=== PATIENT | female | born 1960 | race Hispanic/Latino ===

== ENCOUNTER 2016-10-21 09:33 | Outpatient (CLI) | payer BC ==
[2016-10-21 10:09] LABS: Hematocrit 40.9 % (30.3-42.9); Hemoglobin 13.6 gm/dl (10.1-14.3); Mean Corpuscular HGB Conc 33 % (30-34); Mean Corpuscular Hemoglobin 28 pg (28-32); Mean Corpuscular Volume 86 fl (79-97); Platelet Count 269 K/mm3 (140-440); Red Blood Count 4.78 M/mm3 (3.65-5.03); Red Cell Distribution Width 13.5 % (13.2-15.2); White Blood Count 5.9 K/mm3 (4.5-11.0)
[2016-10-21 10:30] LABS: Alanine Aminotransferase 31 units/L (7-56); Albumin 4.2 g/dL (3.9-5); Albumin/Globulin Ratio 1.4 %; Alkaline Phosphatase 65 units/L (35-129); Anion Gap 18 mmol/L; BUN/Creatinine Ratio 18.75; Bilirubin,Total 0.4 mg/dL (0.1-1.2); Blood Urea Nitrogen 15 mg/dL (7-17); Calcium 9.2 mg/dL (8.4-10.2); Carbon Dioxide 26 mmol/L (22-30); Chloride 101.3 mmol/L (98-107); Cholesterol 178 mg/dL (50-199); Creatine Kinase 160 units/L (30-135); Glucose 104 mg/dL (65-100); HDL Cholesterol 42 mg/dL (40-59); Iron 63 ug/dL (37-170); LDL Cholesterol,Direct 120 mg/dL (50-130); Magnesium 2.3 mg/dL (1.7-2.3); Potassium 4.1 mmol/L (3.6-5.0); Sodium 141 mmol/L (137-145); Total Protein 7.3 g/dL (6.3-8.2); Triglycerides 84 mg/dL (2-149); Uric Acid 7.2 mg/dL (3.5-7.6)
[2016-10-24 06:57] LABS: Vitamin D, 25-OH, Total 30 ng/mL (30-100)
[2016-10-29 07:51] LABS: Vitamin D, 25-OH, D2 SEE SCANNED RESULTS
== END 2016-10-21 09:34 | disposition home or self-care (01) ==
LOC: LAB 09:33
DX: E11.65 Type 2 diabetes mellitus with hyperglycemia (principal); I10 Essential (primary) hypertension; D64.9 Anemia, unspecified; E03.9 Hypothyroidism, unspecified
CPT/HCPCS: 36415; 80053; 80061; 82306; 82550; 82607; 82747; 83036; 83540; 83735; 84439; 84443; 84550; 85027

== ENCOUNTER 2016-11-18 10:54 | Outpatient (CLI) | payer BC ==
--- NOTE | 2016-11-18 11:23 | XRay Report ---
ROUTINE CHEST, TWO VIEWS: HISTORY: Cough. The trachea, heart, mediastinal contour, lung horton and bony thorax are unremarkable. IMPRESSION: Unremarkable chest x-ray. No evidence for pneumonia.
== END 2016-11-18 10:55 | disposition home or self-care (01) ==
LOC: XRAY 10:54
PROVIDERS: ATTEND Internal Medicine
DX: R05 Cough (principal)
CPT/HCPCS: 71020

== ENCOUNTER 2019-06-12 09:37 | Outpatient (CLI) | payer BC ==
[2019-06-12 10:31] LABS: Basophils # (Auto) 0.1 K/mm3 (0.0-0.1); Basophils % (Auto) 0.8 % (0.0-1.8); Eosinophils # (Auto) 0.2 K/mm3 (0.0-0.4); Eosinophils % (Auto) 3.1 % (0.0-4.3); Hematocrit 38.8 % (30.3-42.9); Hemoglobin 13.2 gm/dl (10.1-14.3); Lymphocytes # (Auto) 1.8 K/mm3 (1.2-5.4); Lymphocytes % (Auto) 23.9 % (13.4-35.0); Mean Corpuscular HGB Conc 34 % (30-34); Mean Corpuscular Volume 88 fl (79-97); Monocytes # (Auto) 0.5 K/mm3 (0.0-0.8); Monocytes % (Auto) 5.9 % (0.0-7.3); Platelet Count 257 K/mm3 (140-440); Red Blood Count 4.42 M/mm3 (3.65-5.03); Red Cell Distribution Width 13.5 % (13.2-15.2)
[2019-06-12 11:28] LABS: Alanine Aminotransferase 42 units/L (7-56); Albumin 4.5 g/dL (3.9-5); BUN/Creatinine Ratio 18; Blood Urea Nitrogen 16 mg/dL (7-17); Chol/HDL Ratio 4.54 %; HDL Cholesterol 35 mg/dL (40-59); Hemolysis Index 10; LDL Cholesterol,Direct 108 mg/dL (50-130)
[2019-06-14 09:48] LABS: Vitamin D, 25-OH, D2 <4 ng/mL
== END 2019-06-12 09:38 | disposition home or self-care (01) ==
LOC: LAB 09:37
PROVIDERS: ATTEND Internal Medicine
DX: Z00.00 Encounter for general adult medical examination without abnormal findings (principal); Z13.21 Encounter for screening for nutritional disorder; E55.9 Vitamin D deficiency, unspecified; Z13.1 Encounter for screening for diabetes mellitus; Z13.220 Encounter for screening for lipoid disorders
CPT/HCPCS: 36415; 80053; 80061; 82306; 82607; 83036; 84443; 85025

== ENCOUNTER 2019-06-26 11:45 | Outpatient (CLI) | payer BC ==
[2019-06-26 13:09] LABS: Bilirubin,Urine NEG (Negative); Blood,Urine SM (Negative); Color,Urine Yellow (Yellow); Mucus,Urine FEW /HPF; Protein,Urine <15 mg/dL mg/dL (Negative); Urobilinogen,Urine < 2.0 mg/dL (<2.0)
== END 2019-06-26 11:46 | disposition home or self-care (01) ==
LOC: LAB 11:45
PROVIDERS: ATTEND Internal Medicine
DX: N39.0 Urinary tract infection, site not specified (principal); I10 Essential (primary) hypertension
CPT/HCPCS: 81001; 87086

== ENCOUNTER 2019-07-03 11:27 | Outpatient (CLI) | payer BC ==
--- NOTE | 2019-07-03 14:08 | Mammography Report ---
DIGITAL SCREENING MAMMOGRAM WITH CAD, 07/03/2019 INDICATION: Routine screening mammography. TECHNIQUE: Digital bilateral 2D mammography was obtained in the craniocaudal and mediolateral obliq ue projections. This examination was interpreted with the benefit of Computer-Aided Detection analysi s. COMPARISON: 07/14/2013 FINDINGS: Breast Density: The breasts are almost entirely fatty. There is no evidence of dominant mass, suspicious calcifications or architectural distortion in eithe r breast. IMPRESSION: No mammographic evidence of malignancy. Follow up recommendation: Routine yearly BI-RADS Category 1: Negative. A "normal" or negative report should not discourage follow up or biopsy of a clinically significant f inding. A written summary of these findings will be mailed to the patient. The patient will be entered into a mammography reporting system which will generate a reminder letter for the patient's next appointmen t at the appropriate interval. The [employer] recommends yearly mammograms starting at age 40 and continuing as l gurvinder as a woman is in good health. Breast MRI is recommended for women with an approximate 20-25% or greater lifetime risk of breast cancer, including women with a strong family history of breast or ova clyde cancer or who have been treated for Hodgkin's disease. Signer Name: Chay Medel MD Signed: 07/03/2019 2:04 PM Workstation Name: [id number]
== END 2019-07-03 11:28 | disposition home or self-care (01) ==
LOC: MAMMO 11:27
PROVIDERS: ATTEND Internal Medicine
DX: Z12.31 Encounter for screening mammogram for malignant neoplasm of breast (principal)
CPT/HCPCS: 77067

== ENCOUNTER 2019-10-17 06:49 | Day surgery (SDC) | payer BC ==
[2019-10-17] MEDS ORDERED: WATER FOR IRRIG STERILE 250 ML BOTTLE IR ONE (07:34)
[2019-10-17] MEDS ORDERED: WATER FOR IRRIG STERILE 1,000 ML BOTTLE ONE (07:34)
[2019-10-17] MEDS ORDERED: propofoL 200 MG/20 ML VIAL IV ONE ×2 (07:38)
[2019-10-17] MEDS ORDERED: SODIUM CHLORIDE 0.9% 1000 ML 1,000 ML IV SCH (08:00)
--- NOTE | 2019-10-17 08:14 | Anesthesia Consultation ---
Anesthesia Consult and Med Hx Date of service: 10/17/19 - Airway Anesthetic Teeth Evaluation: Caps, Bridges ROM Head & Neck: Adequate Mental/Hyoid Distance: Inadequate Mallampati Class: Class II Intubation Access Assessment: Probably Good - Pulmonary Exam CTA: Yes - Cardiac Exam Cardiac Exam: RRR - Pre-Operative Health Status ASA Pre-Surgery Classification: ASA2 Proposed Anesthetic Plan: MAC - Pulmonary Hx Smoking: No Hx Asthma: No Hx Respiratory Symptoms: No SOB: No Hx Sleep Apnea: No (Snores) - Cardiovascular System Hx Hypertension: Yes Hx Heart Attack/AMI: No - Central Nervous System Hx Neuromuscular Disorder: No Hx Seizures: No Hx Psychiatric Problems: No - Gastrointestinal Hx Gastroesophageal Reflux Disease: No - Endocrine Hx Renal Disease: No Hx Cirrhosis: No Hx Thyroid Disease: No - Hematic Hx Anemia: No - Other Systems Hx Alcohol Use: No Hx Substance Use: No Hx Cancer: No Hx Obesity: Yes (BMI 39.5kg) - Additional Comments Anesthesia Medical History Comments: Patient denied previous anesthesia complications.
--- NOTE | 2019-10-17 08:18 | Anesthesia Day of Surgery ---
Anesthesia Day of Surgery - Day of Surgery Patient Examined: Yes Patient H&P Reviewed: Yes Patient is NPO: Yes
[2019-10-17] MEDS ORDERED: LIDOCAINE MPF (2%) 20 MG/1 ML VIAL 5 ML ONE (09:00)
--- NOTE | 2019-10-17 09:51 | Short Stay Summary ---
Short Stay Documentation Date of service: 10/17/19 Narrative H&P: The patient presents for high risk screening colonoscopy. There is a family history of a first-degree relative with colon polyps (mother). Her last study was 10 years ago. - History Past Medical History: hypertension Past Surgical History: Other (tubal ligation) Social history: no significant social history, lives with family - Allergies and Medications Current Medications: Allergies No Known Allergies Allergy (Verified 10/16/19 14:47) Home Medications Medication Instructions Recorded Confirmed Last Taken Type Advil Cold & Sinus Caplet 1 tab PO PRN PRN 10/16/19 10/16/19 Unknown History Effexor 37.5mg tab 1 tab PO DAILY 10/16/19 10/17/19 10/16/19 History Hydrochlorothiazide 12.5 mg PO DAILY 10/16/19 10/17/19 10/16/19 History Prilosec 20 mg PO DAILY 10/16/19 10/16/19 Unknown History Vitamin D3 1,000 mg PO DAILY 10/16/19 10/17/19 10/10/19 History Zyrtec 10mg tab 1 tab PO DAILY 10/16/19 10/17/19 10/16/19 History Active Medications Sodium Chloride (Nacl 0.9% 1000 Ml) 1,000 mls @ 50 mls/hr IV DIRECT LORENE Last Admin: 10/17/19 07:58 Dose: 50 mls/hr Documented by: - Physical exam General appearance: no acute distress, well-nourished, obese Integumentary: no rash, no growths, no abnormal pigmentation HEENT: Atraumatic, PERRLA, EOMI, Mucous membr. moist/pink Lungs: Clear to auscultation, Normal air movement Breasts: deferred Heart: Regular rate, Normal S1, Normal S2, No murmurs Gastrointestinal: normoactive bowel sounds, no absent bowel sounds, no tenderness, no distended, no masses, no guarding, no organomegaly, obese Female Genitourinary: deferred Rectal Exam: normal exam-external/orifice, no mass Extremities: no ischemia, pulses intact, pulses symmetrical, No edema, normal temperature, normal color, Full ROM Neurological: Normal gait, Normal speech, Strength at 5/5 X4 ext, Normal tone, Sensation intact, Cranial nerves 3-12 NL - Brief post op/procedure progress note Date of procedure: 10/17/19 Findings: See dictation Estimated blood loss: none Pathology: none Condition: stable - Disposition Condition at discharge: Good Disposition: DC-01 TO HOME OR SELFCARE - Discharge Diagnoses (1) Family history of colonic polyps Status: Acute Short Stay Discharge Plan Activity: other (no driving or 24 hours) Weight Bearing Status: Full Weight Bearing Diet: regular Follow up with: FRANCOIS COUCH MD [Primary Care Provider] - 7 Days
--- NOTE | 2019-10-17 09:53 | Operative Report ---
Operative Report Operative Report: Date of procedure: 10/17/2019 Preprocedure diagnosis: Colon cancer screening, high risk. Family history of c olon polyps in a first-degree relative, mother. Post procedure diagnosis: Moderate diverticulosis of the left colon. Procedure: Colonoscopy to the cecum Endoscopist: Dr. Johnston Anesthesia: Monitored anesthesia care per anesthesia department Estimated blood loss: 0 Medications: Monitored anesthesia care. See separate report by anesthesia for details. After careful discussion of the nature and purpose of the procedure as well as details of the technique risks benefits and alternatives the patient gave consent. Please see recent history and physical from the office. The patient was placed in the left lateral decubitus position and medicated per anesthesia. A rectal exam was performed sphincter tone was normal there were no masses palpable. The Quitt.chn 570 scope was passed transanally and advanced under continuous direct vision without difficulty to the cecum. The colon was well prepared. The cecum was normal. The ascending colon was normal and on forward and retroflexed views. The transverse colon was normal. There were scattered diverticula throughout the descending and sigmoid colon. The rectum was normal on forward and retroflexed views. The procedure was well-tolerated overall and the patient was observed in recovery. Conclusions: Diverticulosis of the left colon. Plan: Repeat colonoscopy in 5 years in light of family history of a first-degree relative with colon polyps. Signed electronically: Mani Johnston M.D.
[2019-10-17 10:51] VITALS: BP 122/75
--- NOTE | 2019-10-17 10:51 | Post Anesthesia Evaluation ---
- Post Anesthesia Evaluation Patient Participated: Yes Airway Patent: Yes Stable Respiratory Function: Yes Nausea/Vomiting: No Temp > 96.8F: Yes Pain Manageable: Yes Adequeate Hydration: Yes Anesthesia Complications: No Block Receding Appropriately: Not Applicable Patient on Ventilator: No
== END 2019-10-17 06:50 | disposition home or self-care (01) ==
LOC: GIO 06:49
PROVIDERS: ATTEND Internal Medicine Gastroenterology
DX: Z12.11 Encounter for screening for malignant neoplasm of colon (principal); K57.30 Diverticulosis of large intestine without perforation or abscess without bleeding; I10 Essential (primary) hypertension; E66.9 Obesity, unspecified; K21.9 Gastro-esophageal reflux disease without esophagitis; Z80.0 Family history of malignant neoplasm of digestive organs; Z98.51 Tubal ligation status; Z98.890 Other specified postprocedural states; Z79.899 Other long term (current) drug therapy; Z83.71 Family history of colonic polyps; Z68.39 Body mass index [BMI] 39.0-39.9, adult
CPT/HCPCS: 45378; J2704; J7030

== ENCOUNTER 2020-06-14 11:24 | Outpatient (CLI) | payer BC ==
[2020-06-14 11:48] LABS: Basophils # (Auto) 0.1 K/mm3 (0.0-0.1); Eosinophils # (Auto) 0.2 K/mm3 (0.0-0.4); Eosinophils % (Auto) 3.3 % (0.0-4.3); Lymphocytes # (Auto) 2.2 K/mm3 (1.2-5.4); Mean Corpuscular HGB Conc 37 % (30-34); Mean Corpuscular Volume 85 fl (79-97); Monocytes # (Auto) 0.4 K/mm3 (0.0-0.8); Monocytes % (Auto) 5.5 % (0.0-7.3); Platelet Count 288 K/mm3 (140-440); Red Cell Distribution Width 13.2 % (13.2-15.2)
[2020-06-14 11:49] LABS: Hematocrit 36.5 % (30.3-42.9); Hemoglobin 13.4 gm/dl (10.1-14.3)
[2020-06-14 12:00] LABS: Bacteria,Urine 1+ /HPF (Negative); Bilirubin,Urine NEG (Negative); Blood,Urine SM (Negative); Color,Urine Yellow (Yellow); Mucus,Urine FEW /HPF; Protein,Urine <15 mg/dL mg/dL (Negative); Urobilinogen,Urine < 2.0 mg/dL (<2.0)
[2020-06-14 12:27] LABS: Chol/HDL Ratio 4.05 %; HDL Cholesterol 36 mg/dL (40-59); LDL Cholesterol,Direct 97 mg/dL (50-130)
[2020-06-14 12:50] LABS: Alanine Aminotransferase 38 units/L (7-56); Albumin 4.2 g/dL (3.9-5); BUN/Creatinine Ratio 14; Blood Urea Nitrogen 11 mg/dL (7-17); Calcium 9.2 mg/dL (8.4-10.2); Hemolysis Index 4
[2020-06-18 11:36] LABS: Vitamin D, 25-OH, D2 <4 ng/mL
== END 2020-06-14 11:25 | disposition home or self-care (01) ==
LOC: LAB 11:24
PROVIDERS: ATTEND Internal Medicine
DX: Z00.00 Encounter for general adult medical examination without abnormal findings (principal); N39.0 Urinary tract infection, site not specified; E55.9 Vitamin D deficiency, unspecified; E66.09 Other obesity due to excess calories; Z13.29 Encounter for screening for other suspected endocrine disorder; Z13.220 Encounter for screening for lipoid disorders
CPT/HCPCS: 36415; 80053; 80061; 81001; 82306; 82607; 83036; 84443; 85025; 87086

== ENCOUNTER 2021-07-10 11:01 | Outpatient (CLI) | payer BC ==
[2021-07-10 11:49] LABS: Alanine Aminotransferase 45 units/L (7-56); Albumin 4.3 g/dL (3.9-5); BUN/Creatinine Ratio 18; Blood Urea Nitrogen 16 mg/dL (7-17); Calcium 8.9 mg/dL (8.4-10.2); HDL Cholesterol 35 mg/dL (40-59); Hemolysis Index 5; LDL Cholesterol,Direct 102 mg/dL (50-130)
[2021-07-10 12:18] LABS: Basophils # (Auto) 0.1 K/mm3 (0.0-0.1); Basophils % (Auto) 0.9 % (0.0-1.8); Eosinophils # (Auto) 0.2 K/mm3 (0.0-0.4); Eosinophils % (Auto) 2.8 % (0.0-4.3); Hematocrit 40.3 % (30.3-42.9); Hemoglobin 13.3 gm/dl (10.1-14.3); Lymphocytes # (Auto) 1.7 K/mm3 (1.2-5.4); Lymphocytes % (Auto) 27.8 % (13.4-35.0); Mean Corpuscular HGB Conc 33 % (30-34); Mean Corpuscular Volume 88 fl (79-97); Monocytes # (Auto) 0.4 K/mm3 (0.0-0.8); Monocytes % (Auto) 5.8 % (0.0-7.3); Platelet Count 295 K/mm3 (140-440); Red Cell Distribution Width 13.2 % (13.2-15.2)
== END 2021-07-10 11:02 | disposition home or self-care (01) ==
LOC: LAB 11:01
PROVIDERS: ATTEND Internal Medicine
DX: Z00.00 Encounter for general adult medical examination without abnormal findings (principal); E55.9 Vitamin D deficiency, unspecified; Z13.29 Encounter for screening for other suspected endocrine disorder; Z13.220 Encounter for screening for lipoid disorders; Z13.1 Encounter for screening for diabetes mellitus
CPT/HCPCS: 36415; 80053; 80061; 82306; 83036; 84443; 85025